=== PATIENT | female | born 1950 | race Caucasian/White ===

== ENCOUNTER → 2016-11-27 | Outpatient (CLI) | payer MEDICARE, OTHER ==
[~2016-11-27] MED LIST: ACIDOPHILUS1 CAP PO; BUPROPION XL300 MG PO; CALCIUM600 MG PO; CARAFATE1 GM PO; CARVEDILOL6.25 MG PO; CELEBREX200 MG PO; CYTOMEL5 MCG PO; DYMISTA NASAL S23 GM NAS; ESTRACE42.5 GM TOP; FIBERCON625 MG PO; FISH OIL1 GM PO; LEVAQUIN750 MG PO; LEVOCETIRIZINE D5 MG PO; MACRODANTIN50 MG PO; MELATONIN3 MG PO; MIRALAX17 GM PO; MOBIC7.5 MG PO; MYRBETRIQ50 MG PO; PRENATAL PLUS I1 TAB PO; PRINIVIL10 MG PO; PROTONIX40 MG PO; SYNTHROID100 MCG PO; TRAMADOL HCL50 MG PO; TRAZODONE HCL150 MG PO; TYLENOL500 MG PO; ULTRAM50 MG PO; VENTOLIN HFA8 GM INH; VESICARE10 MG PO; VIBRAMYCIN100 MG PO; VITAMIN C1000 MG PO; VITAMIN D31000 UNI1 PO; VITAMIN D3400 UNI1 PO; VITAMIN E400 UNI2 PO; ZANAFLEX2 MG PO; [UNRECOGNIZED DRUG - OTHER] IV
== END | disposition short-term general hospital (02) ==
LOC: CLCARD 12:00
DX: I42.9 Cardiomyopathy, unspecified (principal)

== ENCOUNTER → 2016-12-25 | Outpatient (CLI) | payer MEDICARE, OTHER | END | disposition short-term general hospital (02) | LOC: CLCARD 09:25 | DX: Z01.810 Encounter for preprocedural cardiovascular examination (principal); I42.9 Cardiomyopathy, unspecified; M79.7 Fibromyalgia; Z86.79 Personal history of other diseases of the circulatory system ==